=== PATIENT | male | born 1960 | race African-American/Black ===

== ENCOUNTER 2020-01-06 15:30 | Emergency (ER) | payer BC ==
[~2020-01-06] VITALS: Ht 170.2 cm; Wt 91.0 kg
[2020-01-06] MEDS ORDERED: CLONIDINE 0.2MG TABLET PO ONE (15:45)
[2020-01-06 16:36] LABS: HEMATOCRIT. 40.5 % (42.0-52.0); HEMOGLOBIN. 13.5 g/dL (14.0-18.0); LYMPHOCYTES % 36.9 % (20.0-50.0); MEAN CORPUSCULAR HEMOGLOBIN 29.4 pg (28.0-32.0); MEAN CORPUSCULAR VOLUME 88.2 fL (80.0-94.0); MEAN PLATELET VOLUME 8.5 fl (7.4-10.4); MONOCYTES % 10.5 % (2.0-8.0); NEUTROPHILS % 50.6 % (40.0-76.0); PLATELET 213 x1000/uL (130-400); RED BLOOD CELL COUNT 4.59 mill/uL (4.7-6.1); RED CELL DISTRIBUTION WIDTH 14.6 % (11.6-14.6)
[2020-01-06 16:41] LABS: CHLORIDE 108 mEq/L (98-107)
[2020-01-06] MEDS ORDERED: AMLODIPINE 5MG TABLET PO ONE (17:15)
[2020-01-06] MEDS ORDERED: LABETALOL 5MG/ML SYR 20 MG/4 ML SYRINGE IV ONE (17:15)
[2020-01-06 18:27] VITALS: BP 153/112
== END 2020-01-06 22:40 | disposition left against medical advice (07) ==
LOC: ER 15:57
DX: I10 Essential (primary) hypertension (principal)
CPT/HCPCS: 36415; 71045; 80053; 83880; 84484; 85025; 93005; 96374; 99285; J3490